=== PATIENT | male | born 1985 | race Caucasian/White ===

== ENCOUNTER 2025-07-03 07:22 | Emergency (ER) | payer BC ==
[~2025-07-03] VITALS: Ht 185.4 cm; Wt 150.6 kg
[2025-07-03 07:30] VITALS: BP 153/92; TEMP 97.7
[2025-07-03] MEDS ORDERED: IBUPROFEN 600 MG TABLET ONE (07:56)
[2025-07-03] MEDS: IBUPROFEN 600 MG TABLET PO ONE (08:14)
[2025-07-03] MEDS ORDERED: KETO10TA2 PO (09:03)
[2025-07-03 09:22] VITALS: O2SAT 99
== END 2025-07-03 09:23 | disposition home or self-care (01) ==
LOC: ER 07:27
DX: M79.674 Pain in right toe(s) (principal)
CPT/HCPCS: 73630-TC